=== PATIENT | female | born 2005 | race Two or more races ===

== ENCOUNTER 2025-05-29 16:47 | Inpatient (IN) | payer OTHER, SELFPAY ==
[~2025-05-29] VITALS: Ht 165.1 cm; Wt 81.6 kg
[2025-05-29 17:24] LABS: Hematocrit 39.7 % (36.0-46.0); Hemoglobin 13.7 g/dL (12.2-16.2); Mean Corpuscular Hemoglobin 30.7 pg (28.0-32.0); Mean Corpuscular Volume 88.5 fL (80.0-100.0); Nucleated Red Blood Cells % 0.0 %
[2025-05-29 17:37] LABS: Chloride 104 mmol/L (98-107); Potassium 4.0 mmol/L (3.5-5.1); Sodium 140 mmol/L (136-145)
[2025-05-29 17:38] LABS: Anion Gap 9 (5-15); Carbon Dioxide 27 mmol/L (20-31)
[2025-05-29 17:39] LABS: Calcium 9.2 mg/dL (8.7-10.4)
[2025-05-29 17:44] LABS: BUN/Creatinine Ratio 9.0 (10.0-20.0); Glucose 94 mg/dL (74-106)
--- NOTE | 2025-05-29 18:34 | ED.PDOC ---
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 Patient is a , kirk roximately 7 weeks . Started having Abdominal cramping and vaginal bleeding yesterday, with occasional clots. Chief Complaint: Vaginal Bleed Time Seen by MD: 18:33 Reviewed Notes: Nurses Notes Allergies: Coded Allergies: NO KNOWN ALLERGIES (Unverified , 05/29/25) Home Meds Active Scripts Ondansetron Odt 4MG Tab (ZOFRAN PO) 4 Mg Tb, 4 MG PO Q4HPRN PRN for 7 Days, #35 TAB ODT TAB-DISSOLVE IN MOUTH, THEN SWALLOW Prov:BASILIO LAMAS DO 05/30/25 Ibuprofen (Ibuprofen) 800 Mg Tab, 800 MG PO TID PRN for 4 Days, #21 TAB Prov:BASILIO LAMAS DO 05/30/25 Hydrocodone-Acetaminophen (Hydrocodone/Acetaminophen 10-325 mg) 1 Tab Tab, 1 TAB PO Q6HPRN PRN for 6 Days, #24 TAB Prov:BASILIO LAMAS DO 05/30/25 Docusate Sodium (Colace) 100 Mg Cap, 1 CAP PO BID, #60 CAP 2 Refills Prov:BASILIO LAMAS DO 05/30/25 Information Source: Patient Mode of Arrival: Ambulatory Timing: Hours Severity: Moderate Bleeding Quality: Bright Red, Clotted Onset Of Mass/Bleeding: Spontaneous Last Consensual [place]: Unknown History of: Current Associated Signs and Symptoms: Vaginal Bleeding, Abdominal Pain Past Medical History PAST MEDICAL HISTORY: Denies Surgical History: Denies all surgeries 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: 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 ENGINE SPECIALIST Hx 1 Para 0 Family History Family History: Reviewed,noncontributory to illness Social History Smoker: Non-Smoker Alcohol: Denies ETOH Use Drugs: Denies Drug Use Lives In: Home Constitutional: denies: chills, diaphoresis, fatigue, fever, malaise, sweats, weakness, others EENTM: denies: blurred vision, double vision, ear bleeding, ear discharge, ear drainage, ear pain, ear ringing, eye pain, eye redness, hearing loss, mouth pain, mouth swelling, nasal discharge, nose bleeding, nose congestion, nose pain, photophobia, tearing, throat pain, throat swelling, voice changes, others Respiratory: denies: cough, hemoptysis, orthopnea, SOB at rest, shortness of breath, SOB with excertion, stridor, wheezing, others Cardiovascular: denies: chest pain, dizzy spells, diaphoresis, Dyspnea on exertion, edema, irregular heart beat, left arm pain, lightheadedness, palpitations, PND, syncope, others Gastrointestinal: reports: abdominal pain; denies: abdomen distended, blood streaked bowels, constipated, diarrhea, dysphagia, difficulty swallowing, hematemesis, melena, nausea, poor appetite, poor fluid intake, rectal bleeding, rectal pain, vomiting, others Genitourinary: reports: abnormal vagina bleeding; denies: burning, dyspareunia, dysuria, flank pain, frequency, hematuria, incontinence, pain, , vagina discharge, urgency, others Neurological: denies: dizziness, fainting, headache, left sided numbness, left sided weakness, numbness, paresthesia, pre-existing deficit, right sided numbness, right sided weakness, seizure, speech problems, tingling, tremors, weakness, others Musculoskeletal: denies: back pain, gout, joint pain, joint swelling, muscle pain, muscle stiffness, neck pain, others Integumetry: denies: bruises, change in color, change in hair/nails, dryness, laceration, lesions, lumps, rash, wounds, others Allergic/Immunocompromised: denies: Difficulty Healing, Frequent Infections, Hives, Itching, others Hematologic/Lymphatic: denies: anemia, blood clots, easy bleeding, easy bruising, swollen glands, others Endocrine: denies: excessive hunger, excessive sweating, excessive thirst, excessive urination, flushing, intolerance to cold, intolerance to heat, unexplained weight gain, unexplained weight loss, others Psychiatric: denies: anxiety, bipolar disorder, depression, hopeless, panic disorder, schizophrenia, sleepless, suicidal, others Physical Exam General Appearance: No Apparent Distress, Normal HEENT: Normal ENT Inspection, Pharynx Normal, TMs Normal Neck: Full Range of Motion, Non-Tender, Normal, Normal Inspection Respiratory: Chest Non-Tender, Lungs Clear, No Accessory Muscle Use, No Respiratory Distress, Normal Breath Sounds Cardiovascular: No Edema, No JVD, No Murmur, No Gallop, Normal Peripheral Pulses, Regular Rate/Rhythm Breast Exam: Deferred Gastrointestinal: No Organomegaly, Non Tender, No Pulsatile Mass, Normal Bowel Sounds, Soft Genitalia: Deferred Pelvic: Deferred Rectal: Deferred Extremities: No calf tenderness, Normal capillary refill, Normal inspection, Normal range of motion, Non-tender, No pedal edema Musculoskeletal : Apperance: Normal Neurologic: Alert, facsimile operator II-XII nml as Tested, No Motor Deficits, Normal Affect, Normal Mood, No Sensory Deficits Cerebellar Function: Normal Reflexes: Normal Skin: Dry, Normal Color, Warm Lymphatic: No Adenopathy Was a procedure done? Was a procedure done?: No Differential Diagnosis (AIRCRAFT ENGINE SPECIALIST) Vaginal Bleeding: - Missed, - Threatened, Blood Loss Anemia, Ectopic , UTI X-Ray, Labs, Meds, VS Vital Signs Date Time Temp Pulse Resp B/P (MAP) Pulse Ox O2 Delivery O2 Flow Rate FiO2 05/29/25 23:30 83 12 126/81 (96) 99 05/29/25 21:30 66 05/29/25 21:29 75 18 100 Room Air* 0 21 05/29/25 21:29 98.9 69 14 132/68 (89) 99 98.9 05/29/25 16:50 98.9 90 18 130/80 98 98.9 Lab Test 05/29/25 22:07 05/29/25 17:06 05/29/25 17:00 Range/Units Prothrombin Time 11.4 9.3-11.8 sec Prothrombin Time INR 1.08 0.9-1.15 Activated Partial Thromboplast Time 29.2 24.5-34.5 SEC White Blood Count 8.3 4.4-10.8 10^3/uL Red Blood Count 4.48 4.0-5.20 10^6/uL Hemoglobin 13.7 12.2-16.2 g/dL Hematocrit 39.7 36.0-46.0 % Mean Corpuscular Volume 88.5 80.0-100.0 fL Mean Corpuscular Hemoglobin 30.7 28.0-32.0 pg Mean Corpuscular Hemoglobin Concent 34.6 32.0-36.0 g/dL Red Cell Distribution Width 13.2 11.8-14.3 % Platelet Count 363 140-450 10^3/uL Mean Platelet Volume 7.9 6.9-10.8 fL Neutrophils (%) (Auto) 59.3 37.0-80.0 % Lymphocytes (%) (Auto) 30.3 10.0-50.0 % Monocytes (%) (Auto) 9.0 0.0-12.0 % Eosinophils (%) (Auto) 0.7 0.0-7.0 % Basophils (%) (Auto) 0.7 0.0-2.0 % Neutrophils # (Auto) 4.9 1.6-8.6 10 ^3/uL Lymphocytes # (Auto) 2.5 0.4-5.4 10 ^3/uL Monocytes # (Auto) 0.7 0-1.3 10 ^3/uL Eosinophils # (Auto) 0.1 0-0.8 10 ^3/uL Basophils # (Auto) 0.1 0-0.2 10 ^3/uL Nucleated Red Blood Cells 0.0 % Sodium Level 140 136-145 mmol/L Potassium Level 4.0 3.5-5.1 mmol/L Chloride Level 104 98-107 mmol/L Carbon Dioxide Level 27 20-31 mmol/L Anion Gap 9 5-15 Blood Urea Nitrogen 7 L 9-23 mg/dL Creatinine 0.78 0.550-1.02 mg/dL Glomerular Filtration Rate Calc 111 >90 mL/min BUN/Creatinine Ratio 9.0 L 10.0-20.0 Serum Glucose 94 74-106 mg/dL Calcium Level 9.2 8.7-10.4 mg/dL Beta HCG, Quantitative 787.6 H 1.5-4.2 mIU/mL Urine Color Yellow Yellow Urine Clarity Clear Clear Urine pH 5.5 5.0-9.0 Urine Specific [place] 1.023 1.001-1.035 Urine Protein Negative Negative Urine Ketones Trace Negative Urine Blood 3+ H Negative /uL Urine Nitrite Negative Negative Urine Bilirubin Negative Negative Urine Urobilinogen Normal Negative mg/dL Urine Leukocyte Esterase Negative Negative /uL Urine RBC 1 0 - 4 /hpf Urine Microscopic WBC 2 0-5 /HPF Urine Squamous Epithelial Cells Few <5 /hpf Urine Bacteria None seen None Seen /hpf Urine Mucus Few None Seen Urine Glucose Normal Normal mg/dL EXAM: US OB ULTRASOUND COMP LESS 14WKS CLINICAL HISTORY: abdominal pain and vaginal bleeding COMPARISON: None TECHNIQUE: Grayscale, color-flow Doppler, and spectral Doppler ultrasound of the pelvis is performed by transabdominal and transvaginal technique. Findings: Single with gestational sac and embryo visualized in the right ovary. heart rate was not obtained. Estimated gestational age 5 weeks 5 days based on parameters including crown-rump length of 0.2 cm. Uterus measures 5.8 x 3.8 x 4.6 cm in size. Cervical os appears closed. The e ndometrium measures 0.7 cm in thickness. Right ovary measures 3.1 x 1.7 x 3.3 cm. Left ovary measures 1.8 x 1.6 x 2.6 cm. Normal ovarian color Doppler flow bilaterally. No free fluid within the cul-de-sac. Impression: 1. Right ovarian ectopic . OBGYN consult is recommended. 2. Estimated gestational age 5 weeks 5 days with estimated date of confinement 01/24/2026. 3. Myomatous uterus. Cervical os appears closed. 4. Left ovary is grossly unremarkable. 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 Patient Education/Counseling: Diagnosis, Treatment Family Education/Counseling: Diagnosis, Treatment Departure 1 Departure Time of Disposition: 20:21 Impression: Primary Impression: Ectopic Disposition: ADMITTED INPATIENT Condition: Guarded e-Prescriptions Ondansetron Odt 4MG Tab (ZOFRAN PO) 4 Mg Tb 4 MG PO Q4HPRN PRN for 7 Days, #35 TAB ODT TAB-DISSOLVE IN MOUTH, THEN SWALLOW Prov: BASILIO LAMAS DO 05/30/25 Ibuprofen (Ibuprofen) 800 Mg Tab 800 MG PO TID PRN for 4 Days, #21 TAB Prov: RENÉTRAEBASILIO DO 05/30/25 Hydrocodone-Acetaminophen (Hydrocodone/Acetaminophen 10-325 mg) 1 Tab Tab 1 TAB PO Q6HPRN PRN for 6 Days, #24 TAB Prov: RENÉTRAEGUILLERMOBASILIO DO 05/30/25 Docusate Sodium (Colace) 100 Mg Cap 1 CAP PO BID, #60 CAP 2 Refills Prov: BASILIO LAMAS 05/30/25 Discharged With: Self Comments 19-year-old female with with some vaginal bleeding and lower abdominal pain. She is about 7 and half weeks by dates. Ultrasound shows a right sided ectopic that about 5 weeks and 5 days. HCG level is only 788. I contacted OBGYN doctor Suzanne and she reviewed the case and wants to hold the kimmie dodson in the emergency department and will consult on her and possibly bring her to the OR for management of the ectopic . Critical Care Note Critical Care Time?: Yes (35 min-critical care time only) Critical care comment: Total critical care time: Approximately 36 minutes Due to a high probability of clinically significant, life threatening deterioration, the patient required my highest level of preparedness to intervene emergently and I personally spent this critical care time directly and personally managing the patient. This critical care time included obtaining a h istory; examining the patient; pulse oximetry; ordering and review of studies; arranging urgent treatment with development of a management plan; evaluation of patient's response to treatment; frequent reassessment; and, discussions with other providers. This critical care time was performed to assess and manage the high probability of imminent, life-threatening deterioration that could result in multi-organ failure. It was exclusive of separately billable procedures and treating other patients. Stability Stability form required: No Heart Score Heart Score: Heart Score Response (Comments) Value History N/A 0 EKG N/A 0 Age N/A 0 Risk Factors N/A 0 Troponin N/A 0 Total 0 I personally scribed for ASHA BROUSSARD MD ([email or web address]) on 05/29/25 at 18:34. Electronically submitted by Dexter Wright ([email or web address]). I personally scribed for ASHA BROUSSARD MD ([email or web address]) on 05/29/25 at 21:11. Electronically submitted by Dexter Wright ([email or web address]). ASHA BROUSSARD MD May 29, 2025 18:34 MANDO QUINTERO May 29, 2025 21:09
[2025-05-29 18:37] LABS: Blood Urea Nitrogen 7 mg/dL (9-23)
[2025-05-29 18:40] LABS: Urine Protein, UAD Negative (Negative)
--- NOTE | 2025-05-29 19:47 | DVH ---
EXAM: US OB ULTRASOUND COMP LESS 14WKS CLINICAL HISTORY: abdominal pain and vaginal bleeding COMPARISON: None TECHNIQUE: Grayscale, color-flow Doppler, and spectral Doppler ultrasound of the pelvis is performed by transabdominal and transvaginal technique. Findings: Single with gestational sac and embryo visualized in the right ovary. heart rate wa s not obtained. Estimated gestational age 5 weeks 5 days based on parameters including crown-ru mp length of 0.2 cm. Uterus measures 5.8 x 3.8 x 4.6 cm in size. Cervical os appears closed. The endometrium measures 0.7 cm in thickness. Right ovary measures 3.1 x 1.7 x 3.3 cm. Left ovary measures 1.8 x 1.6 x 2.6 cm. Normal ovarian color Doppler flow bilaterally. No free fluid within the cul-de-sac. Impression: 1. Right ovarian ectopic . OBGYN consult is recommended. 2. Estimated gestational age 5 weeks 5 days with estimated date of confinement 01/24/2026. 3. Myomatous uterus. Cervical os appears closed. 4. Left ovary is grossly unremarkable. Critical Result: Ectopic Findings discussed with TEE Hernadez, at 05/29/2025 07:44 PM, and acknowledged receipt and understanding of the findings.
[2025-05-29 21:29] VITALS: PULSE 75; RESP 18; O2SAT 100
[2025-05-29] MEDS ORDERED: ONDANSETRON HCL 4 MG/2 ML VIAL IV PRN (22:30)
[2025-05-29] MEDS ORDERED: HYDROcodone-ACET 5/325MG TAB PO PRN (22:30)
[2025-05-29 22:38] LABS: INR 1.08 (0.9-1.15); Partial Thromboplastin Time 29.2 SEC (24.5-34.5); Prothrombin Time 11.4 sec (9.3-11.8)
[2025-05-29] MEDS: SOD CHL 0.45% 1,000 ML IV SCH (22:44)
--- NOTE | 2025-05-29 23:47 | DVHHP2 ---
History of Present Illness Reason for Visit: Ectopic History of Present Illness The patient is a 19-year-old female 1 para 0 presented to [facility] ED with complaint of vaginal bleeding. Patient reports she is a proximally seven weeks , started having abdominal cramping and vaginal bleeding with occasional clots since yesterday, getting worse today that prompted this visit. Patient was seen and evaluated in the ED, laboratory data shows WBC 8.3, hemoglobin 13.7, hematocrit 39.7, platelets 363, sodium 140, potassium 4.0, BUN 7, creatinine 0.78, glucose 94, calcium 9.2, hCG 787.6, blood pressure 132/68, pulse 66, temperature 98.9 F, O2 saturation 99% on room air. Obstetric ultrasound revealing right ovarian ectopic ; estimated gestational age five weeks five days with estimated date of confinement January 24, 2026. OBGYN will follow the patient. On my assessment, patient denies past medical history, no chest pain, no headache, no dizziness, no shortness of breaths, no abdominal pain at this moment, no diarrhea, no nausea, no vomiting, no fever, no chills. Patient was admitted for further evaluation and medical management. Past Medical History Denies past medical history Past Surgical History Denies all surgeries Family History Reviewed, noncontributory to the management of this case. Past Social History The patient lives at home, denies smoking, alcohol or illicit drugs abuse. Review of Systems Constitutional: No: Fever, Chills, Sweats, Weakness, Malaise, Other Eyes: No: Pain, Vision change, Conjunctivae inflammation, Eyelid inflammation, Other, Redness ENT: No: Ear pain, Ear discharge, Nose pain, Nose discharge, Nose congestion, Mouth pain, Mouth swelling, Throat pain, Throat swelling, Other Respiratory: No: Cough, Dry, Shortness of breath, SOB with excertion, Wheezing, Hemoptysis, Pleuritic Pain, Sputum, Wheezing, Other Cardiovascular: No: Chest Pain, Palpitations, Orthopnea, Paroxysmal Noc. Dyspnea, Edema, Lt Headedness, Other Gastrointestinal: Abdominal Pain; No: Nausea, Vomiting, Diarrhea, Constipation, Melena, Hematochezia, Other Genitourinary: No Dysuria, No Frequency, No Incontinence, No Hematuria, No Retention; Other (Abdominal vaginal bleeding) Musculoskeletal: No: other, neck pain, shoulder pain, arm pain, back pain, hand pain, leg pain, foot pain Skin: No: Rash, Lesions, Jaundice, Bruising, Other Neurological: No: Weakness, Numbness, Incoordination, Change in speech, Confusion, Seizures, Other Allergies: Coded Allergies: NO KNOWN ALLERGIES (Unverified , 05/29/25) Medications Current Medications Medications Dose Ordered Sig/Dawna Route Start Time Stop Time Status Last Admin Dose Admin Acetaminophen/ Hydrocodone Bitart 1 tab Q4HP PRN PO 05/29/25 22:30 Ondansetron HCl 4 mg Q4HP PRN IV 05/29/25 22:30 Docusate Sodium 100 mg BIDPRN PRN PO 05/29/25 22:30 Acetaminophen 650 mg Q6HP PRN PO 05/29/25 22:30 Sodium Chloride 1,000 ml @ 75 mls/hr [id number] IV 05/29/25 22:30 05/29/25 22:44 75 MLS/HR Exam Vital Signs Vital Signs Date Time Temp Pulse Resp B/P (MAP) Pulse Ox O2 Delivery O2 Flow Rate FiO2 05/29/25 21:30 66 05/29/25 21:29 18 100 Room Air* 0 21 05/29/25 21:29 98.9 132/68 (89) 98.9 General Appearance: Alert, Oriented X3, Cooperative, No acute distress HEENT: Atraumatic, PERRLA, EOMI, Mucous membr. moist/pink Respiratory: Clear to auscultation, Normal air movement Cardiovascular: Regular rate, Normal S1, Normal S2, No murmurs Abdominal: Normal bowel sounds, Soft, No hepatospenomegaly, No masses, Other (Reports tenderness) Extremities: No clubbing, No cyanosis, No edema, Normal pulses, No tenderness/swelling Skin: No rashes, No breakdown, No significant lesion Neuro: Normal gait, Normal speech, Strength at 5/5 X4 ext, Normal tone, Sensation intact, Cranial nerves 3-12 NL, Reflexes 2+ Psych/Mental Status: Mental status NL, Mood NL Labs/Xrays Labs Test 05/29/25 22:07 05/29/25 17:06 05/29/25 17:00 Range/Units Prothrombin Time 11.4 9.3-11.8 sec Prothrombin Time INR 1.08 0.9-1.15 Activated Partial Thromboplast Time 29.2 24.5-34.5 SEC White Blood Count 8.3 4.4-10.8 10^3/uL Red Blood Count 4.48 4.0-5.20 10^6/uL Hemoglobin 13.7 12.2-16.2 g/dL Hematocrit 39.7 36.0-46.0 % Mean Corpuscular Volume 88.5 80.0-100.0 fL Mean Corpuscular Hemoglobin 30.7 28.0-32.0 pg Mean Corpuscular Hemoglobin Concent 34.6 32.0-36.0 g/dL Red Cell Distribution Width 13.2 11.8-14.3 % Platelet Count 363 140-450 10^3/uL Mean Platelet Volume 7.9 6.9-10.8 fL Neutrophils (%) (Auto) 59.3 37.0-80.0 % Lymphocytes (%) (Auto) 30.3 10.0-50.0 % Monocytes (%) (Auto) 9.0 0.0-12.0 % Eosinophils (%) (Auto) 0.7 0.0-7.0 % Basophils (%) (Auto) 0.7 0.0-2.0 % Neutrophils # (Auto) 4.9 1.6-8.6 10 ^3/uL Lymphocytes # (Auto) 2.5 0.4-5.4 10 ^3/uL Monocytes # (Auto) 0.7 0-1.3 10 ^3/uL Eosinophils # (Auto) 0.1 0-0.8 10 ^3/uL Basophils # (Auto) 0.1 0-0.2 10 ^3/uL Nucleated Red Blood Cells 0.0 % Sodium Level 140 136-145 mmol/L Potassium Level 4.0 3.5-5.1 mmol/L Chloride Level 104 98-107 mmol/L Carbon Dioxide Level 27 20-31 mmol/L Anion Gap 9 5-15 Blood Urea Nitrogen 7 L 9-23 mg/dL Creatinine 0.78 0.550-1.02 mg/dL Glomerular Filtration Rate Calc 111 >90 mL/min BUN/Creatinine Ratio 9.0 L 10.0-20.0 Serum Glucose 94 74-106 mg/dL Calcium Level 9.2 8.7-10.4 mg/dL Beta HCG, Quantitative 787.6 H 1.5-4.2 mIU/mL Urine Color Yellow Yellow Urine Clarity Clear Clear Urine pH 5.5 5.0-9.0 Urine Specific [place] 1.023 1.001-1.035 Urine Protein Negative Negative Urine Ketones Trace Negative Urine Blood 3+ H Negative /uL Urine Nitrite Negative Negative Urine Bilirubin Negative Negative Urine Urobilinogen Normal Negative mg/dL Urine Leukocyte Esterase Negative Negative /uL Urine RBC 1 0 - 4 /hpf Urine Microscopic WBC 2 0-5 /HPF Urine Squamous Epithelial Cells Few <5 /hpf Urine Bacteria None seen None Seen /hpf Urine Mucus Few None Seen Urine Glucose Normal Normal mg/dL PATIENT: NANY SIN ACCT: [id number] UNIT: [id number] : 2005 LOC: ER ROOM / BED: / AGE / SEX: 19 / F ADM STATUS: REG ER SERVICE 1658 ORDERING PHYSICIAN: JANEL HEARD MD PROCEDURE(s): OB4US - OB ULTRASOUND COMP LESS 14WKS REASON: abdominal pain and vaginal bleeding ORDER NUMBER(s): [id number], ACCESSION NUMBER(s): [id number] EXAM: US OB ULTRASOUND COMP LESS 14WKS CLINICAL HISTORY: abdominal pain and vaginal bleeding COMPARISON: None TECHNIQUE: Grayscale, color-flow Doppler, and spectral Doppler ultrasound of the pelvis is performed by transabdominal and transvaginal technique. Findings: Single with gestational sac and embryo visualized in the right ovary. heart rate was not obtained. Estimated gestational age 5 weeks 5 days based on parameters including crown-rump length of 0.2 cm. Uterus measures 5.8 x 3.8 x 4.6 cm in size. Cervical os appears closed. The endometrium measures 0.7 cm in thickness. Right ovary measures 3.1 x 1.7 x 3.3 cm. Left ovary measures 1.8 x 1.6 x 2.6 cm. Normal ovarian color Doppler flow bilaterally. No free fluid within the cul-de-sac. Impression: 1. Right ovarian ectopic . OBGYN consult is recommended. 2. Estimated gestational age 5 weeks 5 days with estimated date of confinement 01/24/2026. 3. Myomatous uterus. Cervical os appears closed. 4. Left ovary is grossly unremarkable. Critical Result: Ectopic SEPSIS Sepsis Screen Date sepsis recognized/suspect: May 29, 2025 Time Sepsis recognized/suspect: 2131 Recent Procedure: No On Antibiotic Therapy: No Respiratory Rate >20: No Heart Rate >90: No Temp<36 C (96.8 F) or >38.3 C: No SBP <90 or MAP <65 mmHG: No New Acute Mental Status Change: No Is the patient on CPAP, BIPAP,: No Physician Orders Ob Ultrasound Comp Less 14wks (05/29/25 16:58) Ob Trans Vaginal Us (05/29/25 ) * Financial Services Assistant Consultation (05/29/25 20:20) Obtain Consent For Anesthesia (05/29/25 22:02) Obtain Consent For: (05/29/25 22:06) Allergies (05/29/25 22:29) Code Status (05/29/25 22:29) Oxygen Per Hour (05/29/25 22:29) Hydrocodone-Acet 5/325mg Tab ([place] 32 (05/29/25 22:30) Ondansetron Hcl (Zofran) (05/29/25 22:30) Docusate Sodium Capsule (Colace Capsule) (05/29/25 22:30) Complete Blood Count (05/30/25 04:00) Comprehensive Metabolic Panel (05/30/25 04:00) Npo (Nothing By Mouth) Diet (05/30/25 Breakfast) Condition: Serious (05/29/25 22:29) Acetaminophen Tablet (Tylenol Tablet) (05/29/25 22:30) Bedrest With Bathroom Privileg (05/29/25 22:29) Maintain Bed Rest (05/29/25 22:29) Sequential Compression Device (05/29/25 ) Sod Chl 0.45% (Sodium Chloride 0.45% Via (05/29/25 22:30) Admit (05/29/25 23:46) Nitroglycerin Sublingual (Ntrostat Subli (05/30/25 00:00) Morphine Sulfate Injection (05/30/25 00:00) Stat Ekg For Chest Pain (05/29/25 23:46) Notify Md Of Changes From Base (05/29/25 23:46) Lacer And Tier For 24 Hours (05/29/25 23:46) Emergency Dysrhythmia Protocol (05/29/25 23:46) Rhythm Strips Once Every Shift (05/29/25 23:46) Oxygen By Nasal Cannula (05/29/25 23:46) Vital Signs Date Time Temp Pulse Resp B/P (MAP) Pulse Ox O2 Delivery O2 Flow Rate FiO2 05/29/25 21:30 66 05/29/25 21:29 75 18 100 Room Air* 0 21 05/29/25 21:29 98.9 69 14 132/68 (89) 99 98.9 05/29/25 16:50 98.9 90 18 130/80 98 98.9 Laboratory Tests Test 05/29/25 17:06 White Blood Count 8.3 10^3/uL (4.4-10.8) Medications Medications Dose Ordered Sig/Dawna Route Start Time Stop Time Status Last Admin Dose Admin Sodium Chloride 1,000 ml @ 75 mls/hr [id number] IV 05/29/25 22:30 05/29/25 22:44 75 MLS/HR Assessment/Plan Assessment/Plan Acute abdominal pain Vaginal bleeding Ectopic Plan 1. Admit to telemetry unit 2. Breathing treatment 3. Pain control management 4. Management of fluids and electrolytes 5. Consultation for OBGYN 6. Diagnostic tests obstetric ultrasound 7. DVT prophylaxis-on SCDs 8. Repeat labs CBC, CMP in a.m. 9. Continue with current medical management 10. Treatment plan discussed with patient and RN. Patient verbalized understanding. Plan discussed with: Patient, Other (RN) My Orders Orders - MARY TOM DNP Procedure Category Date Status Time Allergies NADIA 05/29/25 In Process 22:29 Code Status CODE 05/29/25 Transmitted 22:29 Oxygen Per Hour RT 05/29/25 Transmitted 22:29 Hydrocodone-Acet PHA 05/29/25 In Process 5/325mg Tab ([place] 22:30 Ondansetron Hcl PHA 05/29/25 In Process (Zofran) 22:30 Docusate Sodium PHA 05/29/25 In Process Capsule (Colace 22:30 Complete Blood Count LAB 05/30/25 Verified 04:00 Comprehensive LAB 05/30/25 Verified Metabolic Panel 04:00 Npo (Nothing By DIET 05/30/25 Transmitted Mouth) Diet Breakfast Condition: Serious NADIA 05/29/25 In Process 22:29 Acetaminophen Tablet PHA 05/29/25 In Process (Tylenol Tablet) 22:30 Bedrest With Bathroom NADIA 05/29/25 In Process Privileg 22:29 Maintain Bed Rest [facility] 05/29/25 In Process 22:29 Sequential NADIA 05/29/25 In Process Compression Device Sod Chl 0.45% (Sodium PHA 05/29/25 In Process Chloride 0.45% Via 22:30 Admit ADMIT 05/29/25 Verified 23:46 Nitroglycerin [facility] 05/30/25 Verified Sublingual (Ntrostat 00:00 Morphine Sulfate PHA 05/30/25 Verified Injection 00:00 Stat Ekg For Chest [facility] 05/29/25 Verified Pain 23:46 Notify Md Of Changes [facility] 05/29/25 Verified From Base 23:46 Lacer And Tier For [facility] 05/29/25 Verified 24 Hours 23:46 Emergency Dysrhythmia [facility] 05/29/25 Verified Protocol 23:46 Rhythm Strips Once [facility] 05/29/25 Verified Every Shift 23:46 Oxygen By Nasal RT 05/29/25 Verified Cannula 23:46 Problem List: (1) Acute abdominal pain (2) Vaginal bleeding (3) Ectopic Date of Service: May 29, 2025 Billing Provider: MARY TOM DNP Common Visit Codes: [id number] INP/OBS CARE (HIGH) MARY TOM DNP May 29, 2025 23:47
[2025-05-30] VITALS (10 sets, daily range): BP systolic 111–130; BP diastolic 67–79; PULSE 60–87; RESP 12–22; TEMP 97.8–99; O2SAT 95–100
[2025-05-30] MEDS ORDERED: NITROGLYCERIN 0.4 MG SL TAB SL PRN
[2025-05-30] MEDS ORDERED: SUCCINYLCHOLINE CHLORIDE 20 MG/ML 10ML VIAL IV ONE (06:41)
[2025-05-30] MEDS ORDERED: ROCURONIUM 10MG/ML 10ML VIAL IV ONE (06:41)
[2025-05-30] MEDS ORDERED: ceFAZolin 2 GM/D5W50ml 50 ML IV ONE (06:44)
[2025-05-30 06:45] LABS: Hematocrit 37.2 % (36.0-46.0); Hemoglobin 12.9 g/dL (12.2-16.2); Mean Corpuscular Hemoglobin 30.5 pg (28.0-32.0); Mean Corpuscular Volume 88.2 fL (80.0-100.0); Nucleated Red Blood Cells % 0.0 %
[2025-05-30] MEDS ORDERED: HYDROmorphone HCL 2 MG/ML VL/or syr ONE (06:45)
[2025-05-30] MEDS ORDERED: KETAMINE 50mg/ML 1ml syringe ONE (06:45)
[2025-05-30] MEDS ORDERED: LIDOCAINE HCL 2% TOP JELLY 5ML TOP ONE (06:46)
[2025-05-30] MEDS ORDERED: ONDANSETRON HCL 4 MG/2 ML VIAL ONE (06:46)
[2025-05-30] MEDS ORDERED: LIDOCAINE 1% INJ PF 5ML AMP ONE (06:46)
[2025-05-30] MEDS ORDERED: SODIUM CHLORIDE LOCK 10 ML ONE (06:46)
[2025-05-30] MEDS ORDERED: fentaNYL CITRATE 5 ML ONE (06:46)
[2025-05-30] MEDS ORDERED: MIDAZOLAM HCL 2MG/2ML 2ml VIAL (1mg/ml) ONE (06:46)
[2025-05-30] MEDS ORDERED: PROPOFOL 10 MG/ML 20 ML IV ONE (06:46)
[2025-05-30] MEDS ORDERED: fentaNYL CITRATE 100 MCG/2 ML VL ONE (06:46)
[2025-05-30] MEDS ORDERED: ZOFR4T PO (06:50)
[2025-05-30] MEDS ORDERED: DOCU-94 PO (06:50)
[2025-05-30] MEDS ORDERED: IBUP-1456 PO (06:50)
[2025-05-30] MEDS ORDERED: HYDR-4072 PO (06:50)
[2025-05-30 06:55] LABS: Alkaline Phosphatase 81 U/L (46-116); Anion Gap 11 (5-15); BUN/Creatinine Ratio 10.4 (10.0-20.0); Calcium 9.1 mg/dL (8.7-10.4); Carbon Dioxide 26 mmol/L (20-31); Chloride 102 mmol/L (98-107); Glucose 85 mg/dL (74-106); Sodium 139 mmol/L (136-145); Total Protein 7.4 g/dL (5.7-8.2)
[2025-05-30 06:56] LABS: Albumin 4.5 g/dL (3.2-4.8); Bilirubin, Total 0.9 mg/dL (0.2-1.0)
[2025-05-30] MEDS ORDERED: HYDROmorphone HCL 2 MG/ML VL/or syr IV PRN (07:00)
[2025-05-30] MEDS ORDERED: METOCLOPRAMIDE HCL 5MG/ml INJ 2ml VIAL IV PRN (07:00)
[2025-05-30] MEDS ORDERED: KETOROLAC TROMETH 30 MG/ML 1ML VIAL IV ONE (07:00)
[2025-05-30] MEDS ORDERED: MORPHINE SULFATE INJ 2 MG/ml SYRG IV PRN ×2 (07:00)
[2025-05-30] MEDS ORDERED: MORPHINE SULFATE 4 MG/ML SYR/VIAL IV PRN (07:00)
[2025-05-30 07:01] LABS: Alanine Aminotransferase < 9 U/L (7-40); Blood Urea Nitrogen 8 mg/dL (9-23); Potassium 3.4 mmol/L (3.5-5.1)
--- NOTE | 2025-05-30 07:03 | DVHHP ---
ADMIT DATE: 05/29/2025 CHIEF COMPLAINT: Abdominal pain, vaginal bleeding. HISTORY OF PRESENT ILLNESS: The patient is a 19-year-old 1, para 0, admitted for right ectopic . Ultrasound reveals yolk sac and gestational sac of 5 weeks and 5 days with crown-rump length of 0.2 cm consistent with ectopic . Uterus is 6-week size. The patient has had some occasional clots with abdominal cramping. PAST MEDICAL HISTORY: None. PAST SURGICAL HISTORY: None. SOCIAL HISTORY: None. FAMILY HISTORY: None. CUSTOMER SERVICE COORDINATOR HISTORY: Primigravid. REVIEW OF SYSTEMS: Consistent with HPI. PHYSICAL EXAMINATION: VITAL SIGNS: Temperature afebrile. HEENT: Within normal limits. CARDIOVASCULAR: Regular rate and rhythm. LUNGS: Clear to auscultation. BREASTS: Symmetrical. No masses. ABDOMEN: Soft. No rigidity. No rebound. Right lower quadrant tenderness. PELVIC: External genitalia within normal limits. Vagina normal. Cervix grossly normal appearing. No cervical motion tenderness. Right adnexal tenderness noted. EXTREMITIES: No clubbing, cyanosis, or edema. IMPRESSION: Right ovarian ectopic per ultrasound findings. PLAN: Laparoscopy, possible removal of affected tube or ovary or both on the affected side, possible exploratory laparoscopy, possible blood transfusion. Informed consent obtained. ADDENDUM Informed consent obtained. Risks, complications of surgery including infection, bleeding, hematoma formation, injury to bowel or bladder, possibility of DVT, pulmonary embolism and risks of anesthesia were discussed with the patient, loss of affected tubal ovary, possibility of future infertility discussed. The patient fully understands. She wishes to proceed with planned procedure. DO NIA Matthews TID: [id number] RECEIPT: [id number]
[2025-05-30] MEDS ORDERED: SUGAMMADEX 200mg/2ml Vial (100MG/ML) IV ONE (07:27)
[2025-05-30] MEDS: BUPIVACAINE 0.5% P/F INJ 10 ML VIAL ONE (08:00)
[2025-05-30] MEDS ORDERED: NEOSTIGMINE 1 MG/ML INJ (10mg/10ML VIAL) ONE (08:02)
[2025-05-30] MEDS ORDERED: GLYCOPYRROLATE 0.2 MG/ML 1ML VIAL ONE (08:02)
[2025-05-30] MEDS: HYDROmorphone HCL 2 MG/ML VL/or syr IV PRN ×2 (08:40→16:43)
[2025-05-30] MEDS ORDERED: ACETAMINOPHEN IV 1000 MG/100ML (10MG/ML) IV PRN (08:45)
[2025-05-30] MEDS: ACETAMINOPHEN IV 100 ML IV ONE (08:47)
[2025-05-30] MEDS: LACTATED RINGER'S 1,000 ML IV SCH (10:28)
[2025-05-30] MEDS: ACETAMINOPHEN 325 MG TAB PO PRN (10:37)
[2025-05-30] MEDS: CEFEPIME 1GM/50ML 50 ML IV SCH (13:53)
--- NOTE | 2025-05-30 15:13 | DVHOP2 ---
Operative Report DATE OF OPERATION: 05/30/25 PREOPERATIVE DIAGNOSES: Right ovarian ectopic . POSTOPERATIVE DIAGNOSES: same,right hydrosalpinx SURGEON: Raisa Lamas D.O./rebecca ANESTHESIOLOGIST: meli TYPE OF ANESTHESIA : General CONSENT: The patient was informed of the risks and benefits of the procedure. The patient was informed of the risks and benefits of the procedure. These incl ude but are not limited to , complications of anesthesia, postoperative infection, incomplete relief of symptoms, recurrence of symptoms, damage to blood vessels, nerves and tendons, deep venous thrombosis, pulmonary embolism and possible need for repeat surgery in the future. FINDINGS: Right ovarian . Uterus is 8-week sized. Left tube and ovary are normal appearing. Right hydrosalpinx PROCEDURES: Laparoscopic Right Salpingoophrectomy PROCEDURE IN DETAIL: The patient was taken to the operating room where she was placed under general anesthesia. She was then prepped and draped in the usual sterile manner in dorsal lithotomy position. Bladder was emptied using Chou catheter. Examination under anesthesia revealed the above findings. A weighted speculum was placed in the vagina. Anterior lip of the cervix was grasped using single-tooth tenaculum. Uterus was sounded to 8 cm. HUMI catheter was placed. Attention was then turned to the abdomen where Veress needle was introduced. Abdomen was distended with 3L of CO2 gas. Using Visiport, under direct visualization, abdomen was entered through the umbilical fold. A 5-mm trocar was placed in the suprapubic region. A 12-mm trocar was placed on the left lateral aspect of the abdomen 4 cm away from the midline. Survey of pelvis and abdomen revealed right ovarian and r hydrosalpionx. Left tube and ovary were grossly normal appearing. A ARY stapler was then introduced to excise the right tube and ovary . This was done successfully. Hemoclips were applied. Pelvis was copiously irrigated with normal saline. Using endobag, the specimen was brought out through the 12-mm port. No bleeding was noted. Incisional ports were closed using 4-0 Vicryl as well as 0 Vicryl for the bigger port enclosing the fascia. The patient tolerated the procedure well. The 12-mm trocar site was closed using staplers. HUMI catheter was removed from the vagina and cervix. The patient was taken to the recovery room in a stable condition. ESTIMATED BLOOD LOSS: Estimated blood loss was noted to be 20 mL. Visit Coding OBGYN Date of Service: May 30, 2025 Billing Provider: RAISA LAMAS DO VISUAL BASIC PROGRAMMER Common Visit Codes: 72295-[id number] OBS CARE (HIGH) VISUAL BASIC PROGRAMMER Procedure Codes: 38980-GF ECTOP PREG TUBAL/OVARIAN RAISA LAMAS DO May 30, 2025 15:13
--- NOTE | 2025-05-30 15:22 | POSTOP ---
Post-Operative Note Post-Operative Note Preop Diagnosis r ovarian ectopic preg Postop Diagnosis: same right hydrosalpinx Operation performed laparoscopic rso Specimen right tube and ovary Anesthesia: General Anesthesiologist: meli Blood Loss(fluid mgmt) 20ml Surgeon Raisa Palacios Machine Turner rebecca Implant clips Complications & Mgmt none Date 05/30/25 Time 15:13 Visit Coding OBGYN Date of Service: May 30, 2025 Billing Provider: RAISA PALACIOS DO HOUSEKEEPER NANNY Common Visit Codes: [id number] OBS CARE (HIGH) HOUSEKEEPER NANNY Procedure Codes: 95472-TC ECTOP PREG TUBAL/OVARIAN RAISA PALACIOS DO May 30, 2025 15:22
--- NOTE | 2025-05-30 16:48 | DVHPN2 ---
Progress Note Date Seen: May 30, 2025 Medical Necessity Reason Pt with a Central, PICC or Fol: No Subjective Patient reports: Feels better Review of Systems: GI:Abnormal (Pain is improved) Objective vital signs Vital Sign Date Time Temp Pulse Resp B/P (MAP) Pulse Ox O2 Delivery O2 Flow Rate FiO2 05/30/25 16:43 78 18 126/70 05/30/25 13:00 98.1 95 98.1 05/30/25 08:20 Room Air 100 05/30/25 08:15 7.0 Total Intake and Output 05/29/25 05/29/25 05/30/25 15:00 23:00 07:00 Intake Total 100 ml Balance 100 ml medications Current Medications Medications Dose Ordered Sig/Dawna Route Start Time Stop Time Status Last Admin Dose Admin Docusate Sodium 100 mg BIDPRN PRN PO 05/29/25 22:30 Acetaminophen 650 mg Q6HP PRN PO 05/29/25 22:30 05/30/25 10:37 650 MG Nitroglycerin 0.4 mg Q5MINP PRN SL 05/30/25 00:00 Morphine Sulfate 2 mg Q30M PRN IV 05/30/25 00:00 Lactated Ringer's 1,000 ml @ 150 mls/hr Q6H40M IV 05/30/25 08:15 05/30/25 15:35 150 MLS/HR Cefepime HCl 50 ml @ 12.5 mls/hr Q8HR IV 05/30/25 14:00 05/30/25 13:53 12.5 MLS/HR Ondansetron HCl 4 mg Q4HPRN PRN IV 05/30/25 08:15 Acetaminophen/ Hydrocodone Bitart 1 tab Q4HP PRN PO 05/30/25 15:15 Hydromorphone HCl 1 mg Q4HPRN PRN IV 05/30/25 15:15 05/30/25 16:43 1 MG Examination: GENERAL:Normal, HEENT:Normal, NECK:Normal, LUNGS:Normal, CVS:Normal, ABDOMEN:Abnormal (Abdominal pain), MSK:Normal, SKIN:Normal, NEURO:Normal laboratory and microbiology Laboratory Tests 05/30/25 05:08 Test 05/30/25 05:08 Range/Units Serum Glucose 85 74-106 mg/dL Labs and/or images reviewed: Labs reviewed by me, Image(s) reviewed by me Problem List/Assessment/Plan Problems(with codes): (1) Ectopic (2) Acute abdominal pain (3) Vaginal bleeding Problem List/Assessment/Plan For ectopic Acute abdominal pain Vaginal bleeding furnace operator and tender recommendation apprecited. s/p Laparoscopic Right Salpingoophrectomy IV fluids Regular diet Pain control Antiemetic Monitor volume Full code SCD for DVT prophylaxis No GI prophylaxis needed Plan discussed with: Patient Date of Service: May 30, 2025 Billing Provider: MIRIAM MARSH MD Common Visit Codes: [id number] INP/OBS CARE(HIGH) MIRIAM MARSH MD May 30, 2025 16:48
[2025-05-30] MEDS ORDERED: DOCUSATE SOD 100 MG CAP PO PRN (17:00)
[2025-05-30 20:31] LABS: Hematocrit 35.5 % (36.0-46.0); Hemoglobin 11.9 g/dL (12.2-16.2); Mean Corpuscular Hemoglobin 30.0 pg (28.0-32.0); Mean Corpuscular Volume 89.3 fL (80.0-100.0); Nucleated Red Blood Cells % 0.2 %
[2025-05-30] MEDS: ONDANSETRON HCL 4 MG/2 ML VIAL IV PRN (21:38)
[2025-05-31] VITALS (7 sets, daily range): BP systolic 106–120; BP diastolic 58–80; PULSE 70–98; RESP 16–20; TEMP 98.1–98.7; O2SAT 95–98
[2025-05-31] MEDS: HYDROcodone-ACET 10/325MG TAB PO PRN (08:43)
[2025-05-31] MEDS: DOCUSATE SOD 100 MG CAP PO PRN (08:44)
[2025-05-31 14:04] LABS: Hematocrit 35.3 % (36.0-46.0); Hemoglobin 12.1 g/dL (12.2-16.2); Mean Corpuscular Hemoglobin 30.5 pg (28.0-32.0); Mean Corpuscular Volume 89.0 fL (80.0-100.0); Nucleated Red Blood Cells % 0.0 %
[2025-05-31 14:19] LABS: Albumin 4.1 g/dL (3.2-4.8); Alkaline Phosphatase 75 U/L (46-116); Anion Gap 8 (5-15); BUN/Creatinine Ratio 6.5 (10.0-20.0); Bilirubin, Total 0.5 mg/dL (0.2-1.0); Calcium 8.7 mg/dL (8.7-10.4); Carbon Dioxide 29 mmol/L (20-31); Chloride 102 mmol/L (98-107); Glucose 100 mg/dL (74-106); Potassium 3.9 mmol/L (3.5-5.1); Sodium 139 mmol/L (136-145); Total Protein 6.5 g/dL (5.7-8.2)
[2025-05-31 14:28] LABS: Alanine Aminotransferase 9 U/L (7-40); Blood Urea Nitrogen 5 mg/dL (9-23)
--- NOTE | 2025-05-31 15:56 | DVHDS2 ---
Discharge Summary Date of Admission May 29, 2025 at 23:46 Date of Discharge: May 31, 2025 Labs/Diagnostic Data: Laboratory Results Test 05/31/25 13:20 05/29/25 22:07 05/29/25 17:00 White Blood Count 8.9 10^3/uL (4.4-10.8) Red Blood Count 3.97 10^6/uL (4.0-5.20) Hemoglobin 12.1 g/dL (12.2-16.2) Hematocrit 35.3 % (36.0-46.0) Mean Corpuscular Volume 89.0 fL (80.0-100.0) Mean Corpuscular Hemoglobin 30.5 pg (28.0-32.0) Mean Corpuscular Hemoglobin Concent 34.3 g/dL (32.0-36.0) Red Cell Distribution Width 13.4 % (11.8-14.3) Platelet Count 313 10^3/uL (140-450) Mean Platelet Volume 7.8 fL (6.9-10.8) Neutrophils (%) (Auto) 57.8 % (37.0-80.0) Lymphocytes (%) (Auto) 30.8 % (10.0-50.0) Monocytes (%) (Auto) 9.0 % (0.0-12.0) Eosinophils (%) (Auto) 1.8 % (0.0-7.0) Basophils (%) (Auto) 0.6 % (0.0-2.0) Neutrophils # (Auto) 5.1 10 ^3/uL (1.6-8.6) Lymphocytes # (Auto) 2.7 10 ^3/uL (0.4-5.4) Monocytes # (Auto) 0.8 10 ^3/uL (0-1.3) Eosinophils # (Auto) 0.2 10 ^3/uL (0-0.8) Basophils # (Auto) 0 10 ^3/uL (0-0.2) Nucleated Red Blood Cells 0.0 % Sodium Level 139 mmol/L (136-145) Potassium Level 3.9 mmol/L (3.5-5.1) Chloride Level 102 mmol/L (98-107) Carbon Dioxide Level 29 mmol/L (20-31) Anion Gap 8 (5-15) Blood Urea Nitrogen 5 mg/dL (9-23) Creatinine 0.77 mg/dL (0.550-1.02) Glomerular Filtration Rate Calc 112 mL/min (>90) BUN/Creatinine Ratio 6.5 (10.0-20.0) Serum Glucose 100 mg/dL (74-106) Calcium Level 8.7 mg/dL (8.7-10.4) Total Bilirubin 0.5 mg/dL (0.2-1.0) Aspartate Amino Transferase (AST) 16 U/L (13-40) Alanine Aminotransferase (ALT) 9 U/L (7-40) Alkaline Phosphatase 75 U/L (46-116) Total Protein 6.5 g/dL (5.7-8.2) Albumin 4.1 g/dL (3.2-4.8) Beta HCG, Quantitative 136.9 mIU/mL (1.5-4.2) Prothrombin Time 11.4 sec (9.3-11.8) Prothrombin Time INR 1.08 (0.9-1.15) Activated Partial Thromboplast Time 29.2 SEC (24.5-34.5) Urine Color Yellow (Yellow) Urine Clarity Clear (Clear) Urine pH 5.5 (5.0-9.0) Urine Specific [place] 1.023 (1.001-1.035) Urine Protein Negative (Negative) Urine Ketones Trace (Negative) Urine Blood 3+ /uL (Negative) Urine Nitrite Negative (Negative) Urine Bilirubin Negative (Negative) Urine Urobilinogen Normal mg/dL (Negative) Urine Leukocyte Esterase Negative /uL (Negative) Urine RBC 1 /hpf (0 - 4) Urine Microscopic WBC 2 /HPF (0-5) Urine Squamous Epithelial Cells Few /hpf (<5) Urine Bacteria None seen /hpf (None Seen) Urine Mucus Few (None Seen) Urine Glucose Normal mg/dL (Normal) Other Laboratory Tests 05/31/25 13:20 Brief Hx & Hospital Course: here with ectopic Condition at Discharge: Good Final Diagnosis/Problems List sameright hydrosalpinx Discharge Disposition: Home Discharge Instruct/Medications Diet: Regular Activity: Light activity Activity comment: PELVIC REST 2 WEEKS AVOID 12 WEEKS Follow Up/Referral: DR CYDNEY ESQUIVEL Medications: SENT TO [facility] Scheduled Docusate Sodium (Colace), 1 CAP PO BID Scheduled PRN Hydrocodone-Acetaminophen (Hydrocodone/Acetaminophen 10-325 mg), 1 TAB PO Q6HPRN PRN Ibuprofen (Ibuprofen), 800 MG PO TID PRN Ondansetron Odt 4MG Tab (Zofran Po), 4 MG PO Q4HPRN PRN Discharge Statement: "Patient was advised to return to the ER or call 911 if any headaches, dizziness, shortness of breath, chest pain, abdominal pain, bleeding, fevers, or worsening of medical condition. Patient was counseled about treatment plan, medications, possible side effects, patientverbalized understanding. All questions were answered to the best of my ability. This discharge took greater then 30 minutes in planning, reviewing documentation, counseling the patient, and discussing with other team members." ASSESSMENT ASSESSMENT Assessment sameright hydrosalpinx Visit Coding OBGYN Date of Service: May 31, 2025 Billing Provider: BERNICE GRAY DO FORESTRY BIOLOGY SPECIALIST Common Visit Codes: 29964-MVI/OBS SAME DATE (MOD), 38255-IBC/OBS SAME DATE (HIGH), 96695-GBR/OBS DISCH DAY <30MIN FORESTRY BIOLOGY SPECIALIST Procedure Codes: 46459-JX ECTOP PREG TUBAL/OVARIAN BERNICE GRAY DO May 31, 2025 15:56
--- NOTE | 2025-05-31 16:32 | DVHPN2 ---
Progress Note Date Seen: May 31, 2025 Medical Necessity Reason Pt with a Central, PICC or Fol: No Subjective Patient reports: Feels better Review of Systems: HEENT:Normal, CVS:Normal, RESPIRATORY:Normal, GI:Normal, :Normal, MSK:Normal, NEURO:Normal Objective vital signs Vital Sign Date Time Temp Pulse Resp B/P (MAP) Pulse Ox O2 Delivery O2 Flow Rate FiO2 05/31/25 12:47 98.1 72 17 106/58 (74) 96 98.1 05/31/25 07:30 Room Air* 0 21 Total Intake and Output 05/30/25 05/30/25 05/31/25 15:00 23:00 07:00 Intake Total 450 ml 710 ml 280 ml Output Total 100 ml Balance 350 ml 710 ml 280 ml medications Current Medications Medications Dose Ordered Sig/Dawna Route Start Time Stop Time Status Last Admin Dose Admin Docusate Sodium 100 mg BIDPRN PRN PO 05/29/25 22:30 05/31/25 08:44 100 MG Acetaminophen 650 mg Q6HP PRN PO 05/29/25 22:30 05/30/25 10:37 650 MG Nitroglycerin 0.4 mg Q5MINP PRN SL 05/30/25 00:00 Morphine Sulfate 2 mg Q30M PRN IV 05/30/25 00:00 Lactated Ringer's 1,000 ml @ 150 mls/hr Q6H40M IV 05/30/25 08:15 05/30/25 15:35 150 MLS/HR Cefepime HCl 50 ml @ 12.5 mls/hr Q8HR IV 05/30/25 14:00 05/31/25 13:51 12.5 MLS/HR Ondansetron HCl 4 mg Q4HPRN PRN IV 05/30/25 08:15 05/31/25 05:14 4 MG Acetaminophen/ Hydrocodone Bitart 1 tab Q4HP PRN PO 05/30/25 15:15 05/31/25 08:43 1 TAB Hydromorphone HCl 1 mg Q4HPRN PRN IV 05/30/25 15:15 05/31/25 05:17 1 MG Docusate Sodium 200 mg DAILYPRN PRN PO 05/30/25 17:00 Examination: GENERAL:Normal, HEENT:Normal, NECK:Normal, LUNGS:Normal, CVS:Normal, ABDOMEN:Normal, MSK:Normal, SKIN:Normal, NEURO:Normal laboratory and microbiology Laboratory Tests 05/31/25 13:20 Test 05/31/25 13:20 Range/Units Serum Glucose 100 74-106 mg/dL Problem List/Assessment/Plan Problem List/Assessment/Plan For ectopic Acute abdominal pain Vaginal bleeding spring winder recommendation 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 s/p Laparoscopic Right Salpingoophrectomy Tolerating diet Clear by OB for discharge Patient states she will follow up with the OB next Monday Full code SCD for DVT prophylaxis No GI prophylaxis needed Plan discussed with: Patient My Orders My Orders Orders - MIRIAM MARSH MD Procedure Category Date Status Time Docusate Sodium PHA 05/30/25 In Process Capsule (Colace 17:00 Date of Service: May 31, 2025 Billing Provider: MIRIAM MARSH MD Common Visit Codes: [id number] INP/OBS CARE(MOD) MIRIAM MARSH MD May 31, 2025 16:32
== END 2025-05-31 20:10 | disposition home or self-care (01) | DRG 818 ==
LOC: ER 16:47 → OVERFLOW 23:46 → TELE-CENTR 05-30 03:02
PROVIDERS: ADMIT Internal Medicine; ATTEND Internal Medicine
PROC: 0UB54ZZ Excision of Right Fallopian Tube, Percutaneous Endoscopic Approach (ICD-10-PCS; 2025-05-30)
PROC: 10T24ZZ Resection of Products of Conception, Ectopic, Percutaneous Endoscopic Approach (ICD-10-PCS; principal; 2025-05-30 07:08)
DX: O00.201 Right ovarian pregnancy without intrauterine pregnancy (principal); O08.0 Genital tract and pelvic infection following ectopic and molar pregnancy; O23.521 Salpingo-oophoritis in pregnancy, first trimester; Z3A.01 Less than 8 weeks gestation of pregnancy
CPT/HCPCS: 36415; 76801; 76817; 80048; 80053; 81001; 84702; 85025; 85610; 85730; 86850; 86900; 86901; 96360; 99291; G0378; J0131; J0330; J2250; J2405; J2704; J3490